=== PATIENT | female | born 1950 | race Caucasian/White ===

== ENCOUNTER 2022-08-21 15:16 | Emergency (ER) | payer MEDICARE ==
[~2022-08-21] VITALS: Ht 160 cm; Wt 46.7 kg
[2022-08-21 15:23] VITALS: BP_SYST 137
--- NOTE | 2022-08-21 15:30 | NUR ---
Patient to ER bed 2 to gown for evaluation. Side rails up. Report given to NATASHA REESE.
--- NOTE | 2022-08-21 15:34 | NUR ---
ER at bedside examining patient.
--- NOTE | 2022-08-21 15:35 | NUR ---
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
[2022-08-21] MEDS ORDERED: NACL 0.9% 1,000 ML IV ONE (16:00)
--- NOTE | 2022-08-21 16:07 | NUR ---
Covid and urine sent to the lab
[2022-08-21 16:27] LABS: BILIRUBIN,URINE NEGATIVE (NEGATIVE); BLOOD, URINE NEGATIVE (NEGATIVE); CLARITY/URINE SL CLOUDY (CLEAR); COLOR,URINE YELLOW (YELLOW); GLUCOSE,URINE NEGATIVE (NEGATIVE); KETONES,URINE NEGATIVE (NEGATIVE); LEUKOCYTE ESTERASE ,URINE NEGATIVE (NEGATIVE); NITRITE, URINE NEGATIVE (NEGATIVE); PH,URINE 5.5 (5.0-8.0); PROTEIN URINE NEGATIVE (NEGATIVE); UROBILINOGEN,URINE 0.2 (0.2-1.0)
[2022-08-21 16:44] LABS: BARBITURATE, URINE POSITIVE (NEG <=200); BENZODIAZEPINE, URINE NEGATIVE (NEG <=150); CANNABINOID, URINE POSITIVE (NEG <=50); COCAINE, URINE NEGATIVE (NEG <=150); METHAMPHETAMINES SCREEN,URINE NEGATIVE (NEG <=500); OPIATE, URINE NEGATIVE (NEG <=100); PHENCYCLIDINE SCREEN,URINE NEGATIVE (NEG <=25); URINE AMPHETAMINE NEGATIVE (NEG <=500); URINE METHADONE NEGATIVE (NEG <=200); URINE OXYCODONE SCREEN NEGATIVE (NEG <=100); URINE PROPOXYPHENE SCREEN NEGATIVE (NEG <=300)
[2022-08-21 16:45] LABS: UR TRICYCLIC ANTIDEPRESSANTS NEGATIVE (NEG <=300)
[2022-08-21 16:45] LABS: ANION GAP 7 (5-15); CALCIUM 9.3 mg/dL (8.4-11.0); CHLORIDE 105 mmol/L (98-107); GLUCOSE 110 mg/dL (70-99); UREA NITROGEN, BLOOD 37 mg/dL (8-21)
[2022-08-21 16:46] LABS: GFR AFRICAN AMERICAN 48 mL/min (>90)
[2022-08-21 16:53] LABS: ALANINE AMINOTRANSFERASE 26 U/L (12-78); ALBUMIN 3.4 g/dL (3.4-4.8); ASPARTATE AMINOTRANSFERASE 54 U/L (10-37)
[2022-08-21 17:00] LABS: ALCOHOL, BLOOD < 3 mg/dL (<10)
[2022-08-21 17:19] LABS: HEMOGLOBIN 12.9 g/dL (12.0-16.0); MEAN CORPUSCULAR HEMOGLOBIN 29 pg (27-31); MEAN CORPUSCULAR HGB CONC 34 % (32-36); MEAN CORPUSCULAR VOLUME 86 fL (79.0-98.0); RED BLOOD CELL COUNT(AUTO) 4.45 MIL/uL (4.2-6.2); RED CELL DISTRIBUTION WIDTH 19.2 % (9.0-15.0); WHITE BLOOD COUNT (AUTO) 3.4 K/uL (4.8-10.8)
--- NOTE | 2022-08-21 17:20 | NUR ---
Pt A&Ox4, respirations even and unlabored, VSS, will cont to monitor
[2022-08-21 17:24] LABS: PLATELET COUNT (AUTO) 26 K/uL (130-430)
[2022-08-21 17:45] LABS: BAND % (MANUAL) 1 % (0-6); BASOPHILS % (MANUAL) 0 % (0-2); EOSINOPHILS % (MANUAL) 4 % (0-7); LYMPHOCYTES % (MANUAL) 19 % (20-46); MONOCYTES % (MANUAL) 3 % (0-11)
[2022-08-21 18:13] VITALS: BP_SYST 137
--- NOTE | 2022-08-21 18:15 | NUR ---
Patient given written and verbal discharge instructions and verbalizes understanding. ER MD discussed with patient the results and treatment provided. Patient in stable condition. ID arm band removed. IV catheter removed intact and dressing applied, no active bleeding. No Rx given. Patient educated on pain management and to follow up with PMD. Pain Scale 0/10 . Opportunity for questions provided and answered. Medication side effect fact sheet provided.
== END 2022-08-21 18:13 | disposition home or self-care (01) ==
LOC: SED 15:16
DX: R55 Syncope and collapse (principal); F12.90 Cannabis use, unspecified, uncomplicated; D69.6 Thrombocytopenia, unspecified; Z79.899 Other long term (current) drug therapy; Z20.822 Contact with and (suspected) exposure to COVID-19
CPT/HCPCS: 99285; 70450; 96360; 71045; 87426; 85027; 80307; 80053; 85007; 84484; 36415; 93005; 72125; 76376; 81003; G0482; J7030